=== PATIENT | male | born 1985 | race Caucasian/White ===

== ENCOUNTER 2024-03-19 15:32 | Emergency (ER) | payer OTHER, SELFPAY ==
[2024-03-19 15:36] VITALS: BP 132/81; PULSE 88; TEMP 36.5; O2SAT 99; BMI 47.5
--- NOTE | 2024-03-19 15:44 | XR_ITS ---
[facility] [id number] Patient Name: EDDIE AGARWAL MRN: [id number] date: 1985 Sex: M Assigned Patient Location: ER Current Patient Location: ED.MAIN Accession/Order Number: [id number] Exam Date: 03/19/2024 16:05 Report Date: 03/19/2024 16:31 At the request of: LEAH JEAN-BAPTISTE Procedure: XR knee LT 3V EXAMINATION: XR knee LT 3V, , 03/19/2024 4:05 PM EDT INDICATION: pain HISTORY: Ordering Provider Reason for Exam: pain Technologist Note: Additional: COMPARISON: None. TECHNIQUE: Left knee x-ray: 3 view(s). FINDINGS: No acute fracture. Joint alignment is anatomic. Joint spaces are preserved. No significant joint effusion. Soft tissues are within normal limits. XR/XR knee LT 3V IMPRESSION: No acute fracture or traumatic malalignment. Electronically authenticated by: MELANI LANCE Date: 03/19/2024 16:31
--- NOTE | 2024-03-19 15:47 | US_ITS ---
[facility] [id number] Patient Name: EDDIE AGARWAL MRN: [id number] date: 1985 Sex: M Assigned Patient Location: ER Current Patient Location: ER Accession/Order Number: [id number] Exam Date: 03/19/2024 16:40 Report Date: 03/19/2024 18:08 At the request of: LEAH JEAN-BAPTISTE Procedure: US venous doppler LE LT EXAM: US venous doppler LE LT HISTORY: redness swelling COMPARISON: None. TECHNIQUE: Evaluation of the deep veins of the left lower extremity was performed utilizing B-mode, color flow and spectral analysis. FINDINGS: The visualized vessels comprising the deep venous systems from the common femoral vein through the calf veins demonstrate appropriate compressibility, spontaneous color Doppler flow, and augmentation of flow on spectral Doppler with distal compression. Additional findings: Lower extremity edema is noted. Prominent left inguinal lymph nodes measuring up to 1.5 cm, likely reactive. US/US venous doppler LE LT IMPRESSION: No sonographic evidence of deep venous thrombosis of the left lower extremity. Electronically authenticated by: CHUN ALVAREZ Date: 03/19/2024 18:08
--- NOTE | 2024-03-19 16:37 | ED.EXTPRO1 ---
HPI - Extremity Problem General Chief complaint: Extremity Problem, Nontraumatic Stated complaint: LOWER LEFT EXTREMITY PAIN Time Seen by Provider: 03/19/24 15:37 Source: patient Mode of arrival: walk-in Limitations: no limitations History of Present Illness HPI Narrative: 38-year-old male presents here with chief complaint of left lower extremity discomfort. Patient states last week he began to have knee pain he has had a history of a scope in this knee in the past denies any new injury or trauma. This morning he woke with redness to the reyna and swelling he does have calf pain and tenderness as well. Patient denies a previous history of a DVT. Denies any other injury or trauma. Related Data Home Medications ?Medication ?Instructions ?Recorded ?Confirmed adapex 03/19/24 amlodipine 5 mg tablet 5 mg PO DAILY 03/19/24 03/19/24 loratadine 10 mg tablet (Claritin) 10 mg PO DAILY 03/19/24 03/19/24 olmesartan 40 1 tab PO DAILY 03/19/24 03/19/24 mg-hydrochlorothiazide 25 mg tablet (Benicar HCT) Previous Rx's ?Medication ?Instructions ?Recorded cephalexin 500 mg capsule 500 mg PO QID 10 days #40 caps 03/19/24 ibuprofen 800 mg tablet 800 mg PO Q8H PRN pain #30 tabs 03/19/24 Allergies Allergy/AdvReac Type Severity Reaction Status Date / Time No Known Drug Allergies Allergy Verified 03/19/24 15:40 Review of Systems ROS Narrative All Systems are negative except as noted/marked.All systems reviewed and otherwise negative PFSH PFSH Social History Little interest or pleasure in doing things: not at all Feeling down, depressed, or hopeless: not at all Exam Narrative Exam Narrative: Nurses note and vital signs reviewed and patient is not hypoxic. General: The patient appears well and in no apparent distress. Patient is resting comfortably on cart. Skin: Warm, dry, no pallor noted. There is no rash noted. Head: Normocephalic, atraumatic Eye: Normal conjunctiva, no drainage, EOMI. PERRL Ears, Nose, Mouth, and Throat: oral mucosa is moist. Nares patent. Mouth without vesicles. Ear canals patent. Tm's without Erythema Cardiovascular: Regular Rate and Rhythm Respiratory: Patient is in no distress, no accessory muscle use, lungs are clear to auscultation, no wheezing, rales or rhonchi Musculoskeletal: Lower extremity skin redness, calf pain tenderness minimal swelling no pitting edema, remainder of extremities are unremarkable. Neurological: A&O x4, normal speech Psychiatric: Cooperative Constitutional Vital Signs, click to edit/add: Last Vital Signs Temp 97.7 F 03/19/24 15:36 Pulse 88 03/19/24 15:36 Resp 16 03/19/24 15:36 BP 132/81 03/19/24 15:36 Pulse Ox 99 03/19/24 15:36 Course Vital Signs Vital signs: Vital Signs Temperature 97.7 F 03/19/24 15:36 Pulse Rate 88 03/19/24 15:36 Respiratory Rate 16 03/19/24 15:36 Blood Pressure 132/81 03/19/24 15:36 Pulse Oximetry 99 03/19/24 15:36 Temperature 97.7 F 03/19/24 15:36 Pulse Rate 88 03/19/24 15:36 Respiratory Rate 16 03/19/24 15:36 Blood Pressure 132/81 03/19/24 15:36 Pulse Oximetry 99 03/19/24 15:36 MDM - Extremity (Nontraumatic) MDM Narrative Medical decision making narrative: 38-year-old male presents here with chief complaint of left lower extremity discomfort. Patient states last week he began to have knee pain he has had a history of a scope in this knee in the past denies any new injury or trauma. This morning he woke with redness to the reyna and swelling he does have calf pain and tenderness as well. Patient denies a previous history of a DVT. Denies any other injury or trauma. The emergency room patient states he was sent by the urgent care as they did not have an x-ray machine he had complaint of left knee pain no new injury or trauma. X-ray today showed no acute fomites dislocation. Patient also has cellulitis noted to the left lower reyna area with some calf tenderness. Ultrasound read by radiology ruled out any acute DVT. Patient be treated for cellulitis. Instructed to follow-up with Dr. valdez for his knee pain or his previous surgeon. He may follow-up primary care physician for cellulitis. Reasons to return to the emergency room were discussed Medical Records Attestation: I reviewed the patient's medical records. Imaging Data knee: Attestation: I have reviewed the pertinent imaging results. Radiologist's impression: ITS Impressions Knee X-Ray 03/19/24 15:44 IMPRESSION: No acute fracture or traumatic malalignment. Electronically authenticated by: MELANI LANCE Date: 03/19/2024 16:31 Venous Doppler Study 03/19/24 15:47 IMPRESSION: No sonographic evidence of deep venous thrombosis of the left lower extremity. Electronically authenticated by: CHUN ALVAREZ Date: 03/19/2024 18:08 Discharge Plan Discharge Chief Complaint: Extremity Problem, Nontraumatic Clinical Impression: Cellulitis, Knee pain Patient Disposition: Home, Self-Care Time of Disposition Decision: 18:15 Condition: Good Prescriptions / Home Meds: New cephalexin 500 mg capsule 500 mg PO QID 10 Days Qty: 40 0RF ibuprofen 800 mg tablet 800 mg PO Q8H PRN (Reason: pain) Qty: 30 0RF No Action olmesartan-hydrochlorothiazide [Benicar HCT] 40-25 mg tablet 1 tab PO DAILY amlodipine 5 mg tablet 5 mg PO DAILY loratadine [Claritin] 10 mg tablet 10 mg PO DAILY adapex Print Language: [place] Instructions: Cellulitis (ED), Knee Pain (ED), Warm Compress or Soak (ED) Referrals: Physician,Non-Staff, [Primary Care Provider] - 1 week John Valdez MD [Physician] - 03/23/24 10:45 am Discharge Date/Time: 03/19/24 18:46
[2024-03-19] MEDS: IBUPROFEN 400 MG TABLET 800 MG PO (18:30)
== END 2024-03-19 18:46 | disposition home or self-care (01) ==
PROVIDERS: Emergency Provider Emergency Medicine
DX: L03.116 Cellulitis of left lower limb (principal); M25.562 Pain in left knee
CPT/HCPCS: 73562; 93971; 99284